=== PATIENT | male | born 1955 | race African-American/Black ===

== ENCOUNTER 2018-10-31 13:17 | Emergency (ER) | payer MEDICARE, OTHER ==
[~2018-10-31] VITALS: Ht 182.9 cm; Wt 119.5 kg
[2018-10-31] MEDS ORDERED: HYDR25TA PO (13:45)
[2018-10-31] MEDS ORDERED: SERT50TA12 PO (13:45)
[2018-10-31] MEDS ORDERED: BUPR75 PO (13:45)
[2018-10-31] MEDS ORDERED: VERA80 PO (13:45)
[2018-10-31] MEDS ORDERED: ASPI-556 PO (13:45)
[2018-10-31] MEDS ORDERED: OMEP10 PO (13:45)
[2018-10-31] MEDS ORDERED: ALBUTEROL SULFATE 2.5 MG/0.5 ML NEB SOLUTION NEB ONE ×2 (14:45→15:40)
[2018-10-31] MEDS ORDERED: IPRATROPIUM BROMIDE 0.5 MG/2.5 ML NEB SOLUTION NEB ONE (14:45)
[2018-10-31 15:25] LABS: BASOPHILS % (AUTO) 0.6 % (0.0-2.0); EOSINOPHILS % (AUTO) 1.5 % (1.0-6.0); HEMATOCRIT 39.7 % (41-53); HEMOGLOBIN 13.3 g/dL (13.5-17.5); LYMPHOCYTES # (AUTO) 1.1 K/uL (1.0-4.8); LYMPHOCYTES % (AUTO) 20.3 % (22.0-44.0); MEAN CORPUSCULAR HEMOGLOBIN 30.2 pg (26.0-34.0); MEAN CORPUSCULAR HGB CONC 33.4 G/dL (31.0-37.0); MEAN CORPUSCULAR VOLUME 91 fL (80-100); MONOCYTES # (AUTO) 1.2 K/uL (0.1-1.0); MONOCYTES % (AUTO) 22.7 % (2.0-9.0); NEUTROPHILS # (AUTO) 2.9 K/uL (1.8-7.7); NEUTROPHILS % (AUTO) 54.9 % (40.0-70.0); PLATELET COUNT (AUTO) 200 K/uL (150-450); RED BLOOD CELL COUNT(AUTO) 4.39 MIL/uL (4.50-5.90); RED CELL DISTRIBUTION WIDTH 13.2 % (11.5-14.5)
[2018-10-31 15:40] LABS: ANION GAP 9 mmol/L (8-16); CALCIUM, TOTAL 8.9 mg/dL (8.8-10.5); CARBON DIOXIDE 29 mmol/L (22-29); CHLORIDE 103 mmol/L (98-107); CREATININE 1.14 mg/dL (0.60-1.30); GLOMERULAR FILTR. RATE CALC > 60 mL/min (>60); GLUCOSE,RANDOM 101 mg/dL (70-110); POTASSIUM 3.4 mmol/L (3.5-5.1); SODIUM SERUM 141 mmol/L (136-145); UREA NITROGEN, BLOOD 18 mg/dL (7-18)
[2018-10-31 15:47] LABS: B-TYPE NATRIURETIC PEPTIDE 14 pg/mL (0-100)
[2018-10-31 16:05] LABS: ALANINE AMINOTRANSFERASE 22 U/L (12-78); ALBUMIN 3.2 g/dL (3.4-5.0); ALKALINE PHOSPHATASE 78 U/L (46-116); ASPARTATE AMINOTRANSFERASE 29 U/L (15-37); BILIRUBIN,TOTAL 0.7 mg/dL (0.1-1.0); CREATINE KINASE, TOTAL ONLY 215 U/L (39-308); TOTAL PROTEIN, SERUM 7.4 g/dL (6.4-8.2)
[2018-10-31] MEDS ORDERED: DEXAMETHASONE SOD PHOS 4 MG/ML 5 ML VIAL IVP ONE (16:30)
[2018-10-31] MEDS ORDERED: LEVOFLOXACIN 500 MG/D5% WATER 100 ML IV ONE (16:30)
[2018-10-31 16:50] LABS: PLATELET MORPHOLOGY COMMENT LARGE PLTS PRESENT
[2018-10-31 18:15] VITALS: BP 159/73
[2018-11-01] MEDS ORDERED: INHALER IH (12:12)
[2018-11-01] MEDS ORDERED: ANTIBIOTIC PO (12:12)
== END 2018-10-31 18:42 | disposition home or self-care (01) ==
LOC: EMS 13:36
DX: J40 Bronchitis, not specified as acute or chronic (principal); K21.9 Gastro-esophageal reflux disease without esophagitis; I10 Essential (primary) hypertension; Z79.82 Long term (current) use of aspirin
CPT/HCPCS: 36415; 71045; 80053; 82550; 83880; 84484; 85025; 93005; 94640; 96365; 96375; 99285; J1100; J1956

== ENCOUNTER 2018-11-01 12:10 | Inpatient (IN) | payer MEDICARE, OTHER ==
[~2018-11-01] VITALS: Ht 182.9 cm; Wt 119.0 kg
[~2018-11-01 12:10] MED LIST: ASPI-556 PO; BUPR75 PO; HYDR25TA PO; OMEP10 PO; SERT50TA12 PO; VERA80 PO
[2018-11-01] MEDS ORDERED: ANTIBIOTIC PO (12:12)
[2018-11-01] MEDS ORDERED: INHALER IH (12:12)
[2018-11-01] MEDS ORDERED: ALBUTEROL SULFATE 5 MG/ML 20 ML NEB SOLN [BULK] NEB ONE (12:45)
[2018-11-01] MEDS ORDERED: IBUPROFEN 600 MG TABLET PO ONE (12:45)
[2018-11-01] MEDS ORDERED: IPRATROPIUM BROMIDE 0.5 MG/2.5 ML NEB SOLUTION NEB ONE (12:45)
[2018-11-01] MEDS ORDERED: PredniSONE 20 MG TABLET PO ONE (12:45)
[2018-11-01 12:49] LABS: BASOPHILS % (AUTO) 0.2 % (0.0-2.0); EOSINOPHILS % (AUTO) 0 % (1.0-6.0); HEMATOCRIT 38.1 % (41-53); HEMOGLOBIN 12.8 g/dL (13.5-17.5); LYMPHOCYTES # (AUTO) 0.9 K/uL (1.0-4.8); LYMPHOCYTES % (AUTO) 15.5 % (22.0-44.0); MEAN CORPUSCULAR HEMOGLOBIN 30.3 pg (26.0-34.0); MEAN CORPUSCULAR HGB CONC 33.6 G/dL (31.0-37.0); MEAN CORPUSCULAR VOLUME 90 fL (80-100); MONOCYTES # (AUTO) 0.8 K/uL (0.1-1.0); MONOCYTES % (AUTO) 13.5 % (2.0-9.0); NEUTROPHILS % (AUTO) 70.8 % (40.0-70.0); PLATELET COUNT (AUTO) 191 K/uL (150-450); RED BLOOD CELL COUNT(AUTO) 4.22 MIL/uL (4.50-5.90); RED CELL DISTRIBUTION WIDTH 13.3 % (11.5-14.5)
[2018-11-01 12:59] LABS: ANION GAP 13 mmol/L (8-16); CALCIUM, TOTAL 8.8 mg/dL (8.8-10.5); CARBON DIOXIDE 25 mmol/L (22-29); CHLORIDE 102 mmol/L (98-107); CREATININE 1.37 mg/dL (0.60-1.30); GLOMERULAR FILTR. RATE CALC > 60 mL/min (>60); GLUCOSE,RANDOM 173 mg/dL (70-110); POTASSIUM 3.1 mmol/L (3.5-5.1); SODIUM SERUM 140 mmol/L (136-145); UREA NITROGEN, BLOOD 16 mg/dL (7-18)
[2018-11-01] MEDS ORDERED: 0.9% SODIUM CHLORIDE 15 ML NEB SOLUTION NEB ONE (13:02)
[2018-11-01] MEDS ORDERED: SODIUM CHLORIDE 0.9% 100 ML ONE (13:53)
[2018-11-01] MEDS ORDERED: IOVERSOL 350 MG/ML 100 ML VIAL ONE (13:53)
[2018-11-01 14:08] LABS: INFLUENZA TYPE A NEGATIVE FOR TYPE A (NEGATIVE); INFLUENZA TYPE B NEGATIVE FOR TYPE B (NEGATIVE)
[2018-11-01] MEDS ORDERED: AZITHROMYCIN 500 MG/NS 250 ML IV ONE (15:45)
[2018-11-01] MEDS ORDERED: CefTRIAXone 1 GM/DEXTROSE 50 ML IV ONE (15:45)
[2018-11-01] MEDS ORDERED: ACETAMINOPHEN 325 MG TABLET PO PRN ×2 (16:00→20:30)
[2018-11-01] MEDS ORDERED: ONDANSETRON HCL 4 MG/2 ML VIAL IVP PRN (16:00)
[2018-11-01] MEDS ORDERED: IPRATROPIUM BROMIDE 0.5 MG/2.5 ML NEB SOLUTION NEB PRN (16:00)
[2018-11-01] MEDS ORDERED: ALBUTEROL SULFATE 2.5 MG/0.5 ML NEB SOLUTION NEB PRN (16:00)
[2018-11-01 17:07] VITALS: BP 151/70
[2018-11-01] MEDS ORDERED: POTASSIUM CHL 10 MEQ/WATER 50 ML IV PRN ×2 (17:30→20:30)
[2018-11-01] MEDS ORDERED: POTASSIUM CHLORIDE 20 MEQ ER TABLET PO PRN ×2 (17:30→20:30)
[2018-11-01] MEDS ORDERED: ZOLPIDEM TARTRATE 5 MG TABLET PO PRN (17:30)
[2018-11-01] MEDS ORDERED: SODIUM CHLORIDE 0.9% 500 ML IV ONE (17:31)
[2018-11-01 19:30] VITALS: BP 154/68
[2018-11-01] MEDS ORDERED: MAGNESIUM HYDROXIDE SUSPENSION 30 ML UDCUP PO PRN (20:30)
[2018-11-01] MEDS: ZOLPIDEM TARTRATE 5 MG TABLET PO PRN (21:10)
[2018-11-01] MEDS: DOCUSATE SODIUM 100 MG CAPSULE PO SCH (21:13)
[2018-11-01 23:32] VITALS: BP 146/69
[2018-11-01] MEDS: HEPARIN SODIUM,PORCINE 5,000 UNITS/ML VIAL SQ SCH (23:41)
[2018-11-02 04:47] VITALS: BP 160/85
[2018-11-02] MEDS: IPRATROPIUM BROMIDE 0.5 MG/2.5 ML NEB SOLUTION NEB PRN ×3 (05:22→19:37)
[2018-11-02] MEDS: ALBUTEROL SULFATE 2.5 MG/0.5 ML NEB SOLUTION NEB PRN ×3 (05:22→19:37)
[2018-11-02 06:20] LABS: ANION GAP 9 mmol/L (8-16); CALCIUM, TOTAL 9.1 mg/dL (8.8-10.5); CARBON DIOXIDE 27 mmol/L (22-29); CHLORIDE 104 mmol/L (98-107); CREATININE 1.21 mg/dL (0.60-1.30); GLOMERULAR FILTR. RATE CALC > 60 mL/min (>60); GLUCOSE,RANDOM 314 mg/dL (70-110); POTASSIUM 4.1 mmol/L (3.5-5.1); SODIUM SERUM 140 mmol/L (136-145); UREA NITROGEN, BLOOD 15 mg/dL (7-18)
[2018-11-02] MEDS: NICOTINE 14 MG/24 HOUR PATCH TD SCH (08:06)
[2018-11-02] MEDS: DOCUSATE SODIUM 100 MG CAPSULE PO SCH ×2 (08:06→20:00)
[2018-11-02] MEDS: HEPARIN SODIUM,PORCINE 5,000 UNITS/ML VIAL SQ SCH ×3 (08:06→23:54)
[2018-11-02 08:28] VITALS: BP 151/59
[2018-11-02] MEDS: BENZOCAINE/MENTHOL LOZENGE PO PRN (09:27)
[2018-11-02 11:39] VITALS: BP 162/85
[2018-11-02] MEDS: AZITHROMYCIN 500 MG/NS 250 ML IV SCH (15:29)
[2018-11-02] MEDS: CefTRIAXone 1 GM/DEXTROSE 50 ML IV SCH (15:29)
[2018-11-02 16:00] VITALS: BP 162/79
[2018-11-02 19:45] VITALS: BP 146/77
[2018-11-02] MEDS: ZOLPIDEM TARTRATE 5 MG TABLET PO PRN (21:04)
[2018-11-02 22:14] LABS: BASOPHILS % (AUTO) 0.4 % (0.0-2.0); EOSINOPHILS % (AUTO) 0.5 % (1.0-6.0); HEMATOCRIT 35.5 % (41-53); HEMOGLOBIN 11.8 g/dL (13.5-17.5); LYMPHOCYTES # (AUTO) 1.8 K/uL (1.0-4.8); LYMPHOCYTES % (AUTO) 37.3 % (22.0-44.0); MEAN CORPUSCULAR HEMOGLOBIN 29.7 pg (26.0-34.0); MEAN CORPUSCULAR HGB CONC 33.3 G/dL (31.0-37.0); MEAN CORPUSCULAR VOLUME 89 fL (80-100); MONOCYTES # (AUTO) 0.8 K/uL (0.1-1.0); MONOCYTES % (AUTO) 15.4 % (2.0-9.0); NEUTROPHILS # (AUTO) 2.3 K/uL (1.8-7.7); NEUTROPHILS % (AUTO) 46.4 % (40.0-70.0); PLATELET COUNT (AUTO) 215 K/uL (150-450); RED BLOOD CELL COUNT(AUTO) 3.97 MIL/uL (4.50-5.90); RED CELL DISTRIBUTION WIDTH 13.6 % (11.5-14.5)
[2018-11-02 22:31] LABS: ANION GAP 7 mmol/L (8-16); CALCIUM, TOTAL 8.7 mg/dL (8.8-10.5); CARBON DIOXIDE 30 mmol/L (22-29); CHLORIDE 104 mmol/L (98-107); CREATININE 0.94 mg/dL (0.60-1.30); GLOMERULAR FILTR. RATE CALC > 60 mL/min (>60); GLUCOSE,RANDOM 199 mg/dL (70-110); POTASSIUM 3.2 mmol/L (3.5-5.1); SODIUM SERUM 141 mmol/L (136-145); UREA NITROGEN, BLOOD 15 mg/dL (7-18)
[2018-11-02 22:37] LABS: ALANINE AMINOTRANSFERASE 22 U/L (12-78); ALBUMIN 2.8 g/dL (3.4-5.0); ALKALINE PHOSPHATASE 69 U/L (46-116); ASPARTATE AMINOTRANSFERASE 27 U/L (15-37); BILIRUBIN,TOTAL 0.3 mg/dL (0.1-1.0); TOTAL PROTEIN, SERUM 7.2 g/dL (6.4-8.2)
[2018-11-02 23:28] VITALS: BP 150/80
[2018-11-03 04:54] VITALS: BP 159/91
[2018-11-03 08:14] VITALS: BP 135/91
[2018-11-03 08:14] LABS: AMPHET/METH SCREEN,URINE NEGATIVE (NEGATIVE); BARBITURATE SCREEN, URINE NEGATIVE (NEGATIVE); BENZODIAZEPINES SCREEN,URINE POSITIVE (NEGATIVE); CANNABINOID SCREEN,URINE NEGATIVE (NEGATIVE); COCAINE SCREEN,URINE POSITIVE (NEGATIVE); METHADONE SCREEN, URINE NEGATIVE (NEGATIVE); OPIATE SCREEN,URINE NEGATIVE (NEGATIVE)
[2018-11-03] MEDS: NICOTINE 14 MG/24 HOUR PATCH TD SCH (08:20)
[2018-11-03] MEDS: DOCUSATE SODIUM 100 MG CAPSULE PO SCH ×2 (08:21→20:10)
[2018-11-03 08:23] LABS: PHENCYCLIDINE SCREEN,URINE NEGATIVE (NEGATIVE)
[2018-11-03] MEDS: HEPARIN SODIUM,PORCINE 5,000 UNITS/ML VIAL SQ SCH ×3 (08:23→23:20)
[2018-11-03] MEDS: ALBUTEROL SULFATE 2.5 MG/0.5 ML NEB SOLUTION NEB PRN (09:55)
[2018-11-03] MEDS: IPRATROPIUM BROMIDE 0.5 MG/2.5 ML NEB SOLUTION NEB PRN (09:55)
[2018-11-03 11:29] VITALS: BP 147/92
[2018-11-03] MEDS: ASPIRIN 81 MG EC TABLET PO SCH (13:59)
[2018-11-03] MEDS: MethylPREDNISolone SOD SUCC 125 MG/2 ML VIAL IVP SCH ×3 (13:59→23:19)
[2018-11-03] MEDS: SERTRALINE HCL 50 MG TABLET PO SCH (14:00)
[2018-11-03] MEDS: VERAPAMIL HCL 80 MG TABLET PO SCH ×2 (14:01→20:10)
[2018-11-03] MEDS: OMEPRAZOLE 10 MG CAPSULE PO SCH ×2 (14:01→20:09)
[2018-11-03] MEDS: BuPROPion HCL 75 MG TABLET PO SCH ×2 (14:01→20:10)
[2018-11-03] MEDS: HYDROCHLOROTHIAZIDE 25 MG TABLET PO SCH ×2 (14:01→20:10)
[2018-11-03] MEDS: CefTRIAXone 1 GM/DEXTROSE 50 ML IV SCH (14:02)
[2018-11-03 15:23] VITALS: BP 144/81
[2018-11-03] MEDS: AZITHROMYCIN 500 MG/NS 250 ML IV SCH (15:32)
[2018-11-03] MEDS ORDERED: MethylPREDNISolone SOD SUCC 125 MG/2 ML VIAL IVP SCH (18:00)
[2018-11-03 19:39] VITALS: BP 153/85
[2018-11-03] MEDS: ZOLPIDEM TARTRATE 5 MG TABLET PO PRN (20:11)
[2018-11-03 23:44] VITALS: BP 155/69
[2018-11-04] MEDS: BENZOCAINE/MENTHOL LOZENGE PO PRN ×2 (02:13→09:18)
[2018-11-04 05:32] VITALS: BP 163/96
[2018-11-04] MEDS: MethylPREDNISolone SOD SUCC 125 MG/2 ML VIAL IVP SCH ×4 (05:32→23:14)
[2018-11-04 08:17] VITALS: BP 142/69
[2018-11-04] MEDS: DOCUSATE SODIUM 100 MG CAPSULE PO SCH ×3 (09:00→20:02)
[2018-11-04] MEDS: VERAPAMIL HCL 80 MG TABLET PO SCH ×2 (09:11→19:51)
[2018-11-04] MEDS: HEPARIN SODIUM,PORCINE 5,000 UNITS/ML VIAL SQ SCH ×3 (09:11→23:14)
[2018-11-04] MEDS: HYDROCHLOROTHIAZIDE 25 MG TABLET PO SCH ×2 (09:11→19:50)
[2018-11-04] MEDS: SERTRALINE HCL 50 MG TABLET PO SCH (09:12)
[2018-11-04] MEDS: NICOTINE 14 MG/24 HOUR PATCH TD SCH (09:12)
[2018-11-04] MEDS: OMEPRAZOLE 10 MG CAPSULE PO SCH ×2 (09:12→20:02)
[2018-11-04] MEDS: BuPROPion HCL 75 MG TABLET PO SCH ×3 (09:12→19:50)
[2018-11-04] MEDS: ASPIRIN 81 MG EC TABLET PO SCH (09:14)
[2018-11-04] MEDS: ALBUTEROL SULFATE 2.5 MG/0.5 ML NEB SOLUTION NEB PRN (09:30)
[2018-11-04] MEDS: IPRATROPIUM BROMIDE 0.5 MG/2.5 ML NEB SOLUTION NEB PRN (09:30)
[2018-11-04] MEDS: OxyCODONE HCL/ACETAMINOPHEN 5-325 MG TABLET PO PRN ×2 (11:29→17:45)
[2018-11-04 12:04] VITALS: BP 147/90
[2018-11-04] MEDS: AZITHROMYCIN 500 MG/NS 250 ML IV SCH (14:23)
[2018-11-04] MEDS: CefTRIAXone 1 GM/DEXTROSE 50 ML IV SCH (14:24)
[2018-11-04 16:15] VITALS: BP 134/80
[2018-11-04 20:04] VITALS: BP 137/76
[2018-11-04 23:11] VITALS: BP 142/73
[2018-11-04] MEDS: ZOLPIDEM TARTRATE 5 MG TABLET PO PRN (23:13)
[2018-11-05] MEDS: MethylPREDNISolone SOD SUCC 125 MG/2 ML VIAL IVP SCH ×4 (05:42→23:13)
[2018-11-05] MEDS ORDERED: OxyCODONE HCL/ACETAMINOPHEN 5-325 MG TABLET ONE (06:51)
[2018-11-05] MEDS: OxyCODONE HCL/ACETAMINOPHEN 5-325 MG TABLET PO PRN ×2 (06:52→17:23)
[2018-11-05 07:20] VITALS: BP 156/82
[2018-11-05] MEDS: OMEPRAZOLE 10 MG CAPSULE PO SCH ×2 (08:50→20:15)
[2018-11-05] MEDS: ASPIRIN 81 MG EC TABLET PO SCH (08:50)
[2018-11-05] MEDS: BuPROPion HCL 75 MG TABLET PO SCH ×3 (08:50→20:15)
[2018-11-05] MEDS: HYDROCHLOROTHIAZIDE 25 MG TABLET PO SCH ×2 (08:50→20:15)
[2018-11-05] MEDS: NICOTINE 14 MG/24 HOUR PATCH TD SCH (08:50)
[2018-11-05] MEDS: DOCUSATE SODIUM 100 MG CAPSULE PO SCH ×2 (08:50→20:15)
[2018-11-05] MEDS: SERTRALINE HCL 50 MG TABLET PO SCH (08:51)
[2018-11-05] MEDS: VERAPAMIL HCL 80 MG TABLET PO SCH ×2 (08:51→20:14)
[2018-11-05] MEDS: HEPARIN SODIUM,PORCINE 5,000 UNITS/ML VIAL SQ SCH ×3 (08:51→23:13)
[2018-11-05 09:53] LABS: BASOPHILS % (AUTO) 0.1 % (0.0-2.0); EOSINOPHILS % (AUTO) 0 % (1.0-6.0); HEMATOCRIT 37.4 % (41-53); HEMOGLOBIN 12.4 g/dL (13.5-17.5); LYMPHOCYTES # (AUTO) 1.1 K/uL (1.0-4.8); LYMPHOCYTES % (AUTO) 12.5 % (22.0-44.0); MEAN CORPUSCULAR HEMOGLOBIN 29.4 pg (26.0-34.0); MEAN CORPUSCULAR HGB CONC 33.2 G/dL (31.0-37.0); MEAN CORPUSCULAR VOLUME 89 fL (80-100); MONOCYTES # (AUTO) 0.3 K/uL (0.1-1.0); MONOCYTES % (AUTO) 3.3 % (2.0-9.0); NEUTROPHILS # (AUTO) 7.2 K/uL (1.8-7.7); NEUTROPHILS % (AUTO) 84.1 % (40.0-70.0); PLATELET COUNT (AUTO) 240 K/uL (150-450); RED BLOOD CELL COUNT(AUTO) 4.22 MIL/uL (4.50-5.90); RED CELL DISTRIBUTION WIDTH 13.1 % (11.5-14.5)
[2018-11-05 10:01] LABS: ANION GAP 9 mmol/L (8-16); CALCIUM, TOTAL 9.2 mg/dL (8.8-10.5); CARBON DIOXIDE 29 mmol/L (22-29); CHLORIDE 95 mmol/L (98-107); CREATININE 1.22 mg/dL (0.60-1.30); GLOMERULAR FILTR. RATE CALC > 60 mL/min (>60); GLUCOSE,RANDOM 397 mg/dL (70-110); POTASSIUM 4.2 mmol/L (3.5-5.1); SODIUM SERUM 133 mmol/L (136-145); UREA NITROGEN, BLOOD 24 mg/dL (7-18)
[2018-11-05 10:07] LABS: ALANINE AMINOTRANSFERASE 31 U/L (12-78); ALBUMIN 3.3 g/dL (3.4-5.0); ALKALINE PHOSPHATASE 90 U/L (46-116); ASPARTATE AMINOTRANSFERASE 25 U/L (15-37); BILIRUBIN,TOTAL 0.4 mg/dL (0.1-1.0); TOTAL PROTEIN, SERUM 7.5 g/dL (6.4-8.2)
[2018-11-05 11:26] VITALS: BP 166/79
[2018-11-05] MEDS: CefTRIAXone 1 GM/DEXTROSE 50 ML IV SCH (14:00)
[2018-11-05] MEDS: AZITHROMYCIN 500 MG/NS 250 ML IV SCH (15:20)
[2018-11-05 15:25] VITALS: BP 135/64
[2018-11-05 20:00] VITALS: BP 150/72
[2018-11-05] MEDS: ZOLPIDEM TARTRATE 5 MG TABLET PO PRN (20:15)
[2018-11-06] VITALS (7 sets, daily range): BP systolic 142–157; BP diastolic 64–88
[2018-11-06] MEDS: MethylPREDNISolone SOD SUCC 125 MG/2 ML VIAL IVP SCH ×4 (06:35→23:19)
[2018-11-06] MEDS: OxyCODONE HCL/ACETAMINOPHEN 5-325 MG TABLET PO PRN ×2 (06:43→11:37)
[2018-11-06 07:17] LABS: BASOPHILS % (AUTO) 0.1 % (0.0-2.0); EOSINOPHILS % (AUTO) 0 % (1.0-6.0); HEMATOCRIT 39.1 % (41-53); HEMOGLOBIN 12.9 g/dL (13.5-17.5); LYMPHOCYTES # (AUTO) 1.2 K/uL (1.0-4.8); LYMPHOCYTES % (AUTO) 12.1 % (22.0-44.0); MEAN CORPUSCULAR HEMOGLOBIN 29.5 pg (26.0-34.0); MEAN CORPUSCULAR HGB CONC 33.1 G/dL (31.0-37.0); MEAN CORPUSCULAR VOLUME 89 fL (80-100); MONOCYTES # (AUTO) 0.4 K/uL (0.1-1.0); MONOCYTES % (AUTO) 4.5 % (2.0-9.0); NEUTROPHILS % (AUTO) 83.3 % (40.0-70.0); PLATELET COUNT (AUTO) 263 K/uL (150-450); RED BLOOD CELL COUNT(AUTO) 4.38 MIL/uL (4.50-5.90); RED CELL DISTRIBUTION WIDTH 13.2 % (11.5-14.5)
[2018-11-06 07:52] LABS: ALANINE AMINOTRANSFERASE 30 U/L (12-78); ALBUMIN 3.2 g/dL (3.4-5.0); ALKALINE PHOSPHATASE 92 U/L (46-116); ANION GAP 7 mmol/L (8-16); ASPARTATE AMINOTRANSFERASE 19 U/L (15-37); BILIRUBIN,TOTAL 0.5 mg/dL (0.1-1.0); CALCIUM, TOTAL 9.4 mg/dL (8.8-10.5); CARBON DIOXIDE 32 mmol/L (22-29); CHLORIDE 94 mmol/L (98-107); CREATININE 1.18 mg/dL (0.60-1.30); GLOMERULAR FILTR. RATE CALC > 60 mL/min (>60); POTASSIUM 3.7 mmol/L (3.5-5.1); SODIUM SERUM 133 mmol/L (136-145); TOTAL PROTEIN, SERUM 7.4 g/dL (6.4-8.2); UREA NITROGEN, BLOOD 22 mg/dL (7-18)
[2018-11-06 07:58] LABS: GLUCOSE,RANDOM 438 mg/dL (70-110)
[2018-11-06] MEDS: ASPIRIN 81 MG EC TABLET PO SCH (08:11)
[2018-11-06] MEDS: DOCUSATE SODIUM 100 MG CAPSULE PO SCH ×2 (08:11→20:16)
[2018-11-06] MEDS: HEPARIN SODIUM,PORCINE 5,000 UNITS/ML VIAL SQ SCH ×3 (08:11→23:20)
[2018-11-06] MEDS: SERTRALINE HCL 50 MG TABLET PO SCH (08:12)
[2018-11-06] MEDS: BuPROPion HCL 75 MG TABLET PO SCH ×3 (08:12→20:16)
[2018-11-06] MEDS: OMEPRAZOLE 10 MG CAPSULE PO SCH ×2 (08:12→20:16)
[2018-11-06] MEDS: HYDROCHLOROTHIAZIDE 25 MG TABLET PO SCH ×2 (08:12→20:16)
[2018-11-06] MEDS: VERAPAMIL HCL 80 MG TABLET PO SCH (08:13)
[2018-11-06] MEDS: NICOTINE 14 MG/24 HOUR PATCH TD SCH (08:16)
[2018-11-06 08:40] LABS: GLUCOMETER DEV NAME(LOC) 5N.2; GLUCOSE,POINT OF CARE 371 MG/DL (70-110)
[2018-11-06] MEDS ORDERED: DEXTROSE 50%-WATER 25 GM/50 ML SYRINGE IVP PRN (09:30)
[2018-11-06] MEDS: INSULIN LISPRO 100 UNITS/ML SQ PRN ×2 (11:52→21:05)
[2018-11-06] MEDS ORDERED: INSULIN LISPRO 100 UNITS/ML SQ ONE (12:45)
[2018-11-06] MEDS ORDERED: SODIUM CHLORIDE 0.9% 500 ML IV ONE (14:38)
[2018-11-06] MEDS: CefTRIAXone 1 GM/DEXTROSE 50 ML IV SCH (14:45)
[2018-11-06] MEDS: AZITHROMYCIN 500 MG/NS 250 ML IV SCH (15:25)
[2018-11-06 17:54] LABS: GLUCOMETER DEV NAME(LOC) 6N.1; GLUCOSE,POINT OF CARE 106 MG/DL (70-110)
[2018-11-06] MEDS: ZOLPIDEM TARTRATE 5 MG TABLET PO PRN (20:16)
[2018-11-06 23:07] LABS: GLUCOMETER DEV NAME(LOC) 6N.2; GLUCOSE,POINT OF CARE 284 MG/DL (70-110)
[2018-11-07] MEDS: MethylPREDNISolone SOD SUCC 125 MG/2 ML VIAL IVP SCH ×2 (05:27→12:56)
[2018-11-07] MEDS: INSULIN LISPRO 100 UNITS/ML SQ PRN ×2 (05:28→11:19)
[2018-11-07 05:58] LABS: EOSINOPHILS % (AUTO) 0 % (1.0-6.0); HEMATOCRIT 39.5 % (41-53); HEMOGLOBIN 12.9 g/dL (13.5-17.5); LYMPHOCYTES # (AUTO) 1.6 K/uL (1.0-4.8); MEAN CORPUSCULAR HEMOGLOBIN 29.2 pg (26.0-34.0); MEAN CORPUSCULAR HGB CONC 32.7 G/dL (31.0-37.0); MEAN CORPUSCULAR VOLUME 89 fL (80-100); MONOCYTES # (AUTO) 0.8 K/uL (0.1-1.0); MONOCYTES % (AUTO) 7.3 % (2.0-9.0); NEUTROPHILS # (AUTO) 8.8 K/uL (1.8-7.7); NEUTROPHILS % (AUTO) 78.7 % (40.0-70.0); PLATELET COUNT (AUTO) 272 K/uL (150-450); RED BLOOD CELL COUNT(AUTO) 4.42 MIL/uL (4.50-5.90); RED CELL DISTRIBUTION WIDTH 13.1 % (11.5-14.5)
[2018-11-07 06:32] LABS: ALANINE AMINOTRANSFERASE 31 U/L (12-78); ALKALINE PHOSPHATASE 74 U/L (46-116); ANION GAP 6 mmol/L (8-16); ASPARTATE AMINOTRANSFERASE 20 U/L (15-37); BILIRUBIN,TOTAL 0.5 mg/dL (0.1-1.0); CARBON DIOXIDE 32 mmol/L (22-29); CHLORIDE 96 mmol/L (98-107); CREATININE 0.99 mg/dL (0.60-1.30); GLOMERULAR FILTR. RATE CALC > 60 mL/min (>60); GLUCOSE,RANDOM 258 mg/dL (70-110); POTASSIUM 3.6 mmol/L (3.5-5.1); SODIUM SERUM 134 mmol/L (136-145); TOTAL PROTEIN, SERUM 6.8 g/dL (6.4-8.2); UREA NITROGEN, BLOOD 27 mg/dL (7-18)
[2018-11-07 06:59] LABS: GLUCOMETER DEV NAME(LOC) 6N.2; GLUCOSE,POINT OF CARE 258 MG/DL (70-110)
[2018-11-07 08:14] VITALS: BP 161/87
[2018-11-07] MEDS: HEPARIN SODIUM,PORCINE 5,000 UNITS/ML VIAL SQ SCH (08:18)
[2018-11-07] MEDS: OMEPRAZOLE 10 MG CAPSULE PO SCH (08:18)
[2018-11-07] MEDS: BuPROPion HCL 75 MG TABLET PO SCH ×2 (08:18→15:18)
[2018-11-07] MEDS: NICOTINE 14 MG/24 HOUR PATCH TD SCH (08:18)
[2018-11-07] MEDS: HYDROCHLOROTHIAZIDE 25 MG TABLET PO SCH (08:19)
[2018-11-07] MEDS: ASPIRIN 81 MG EC TABLET PO SCH (08:19)
[2018-11-07] MEDS: SERTRALINE HCL 50 MG TABLET PO SCH (08:19)
[2018-11-07] MEDS: DOCUSATE SODIUM 100 MG CAPSULE PO SCH (08:20)
[2018-11-07] MEDS: OxyCODONE HCL/ACETAMINOPHEN 5-325 MG TABLET PO PRN (08:29)
[2018-11-07] MEDS ORDERED: VERAPAMIL HCL 240 MG ER TABLET PO SCH (09:00)
[2018-11-07 11:34] VITALS: BP 151/73
[2018-11-07 12:35] LABS: GLUCOMETER DEV NAME(LOC) 6N.2; GLUCOSE,POINT OF CARE 263 MG/DL (70-110)
[2018-11-07] MEDS ORDERED: PredniSONE 20 MG TABLET PO ONE (14:15)
[2018-11-07] MEDS: ALBUTEROL SULFATE 2.5 MG/0.5 ML NEB SOLUTION NEB PRN (14:45)
[2018-11-07] MEDS: IPRATROPIUM BROMIDE 0.5 MG/2.5 ML NEB SOLUTION NEB PRN (14:45)
[2018-11-07] MEDS: CefTRIAXone 1 GM/DEXTROSE 50 ML IV SCH (15:18)
[2018-11-07] MEDS ORDERED: LEVO250 PO (15:25)
[2018-11-07] MEDS ORDERED: ADV100 IH (15:26)
[2018-11-07] MEDS ORDERED: IPRA4AER IH (15:26)
[2018-11-07] MEDS ORDERED: PRED5L PO (15:27)
[2018-11-07 15:57] VITALS: BP 140/83
[2018-11-07 21:55] LABS: GLUCOMETER DEV NAME(LOC) 5N.2; GLUCOSE,POINT OF CARE 408 MG/DL (70-110)
[2018-11-07 21:55] LABS: GLUCOMETER DEV NAME(LOC) 5N.2; GLUCOSE,POINT OF CARE 441 MG/DL (70-110)
[2018-11-07 21:55] LABS: GLUCOMETER DEV NAME(LOC) 5N.2; GLUCOSE,POINT OF CARE 189 MG/DL (70-110)
== END 2018-11-07 16:10 | disposition home or self-care (01) | DRG 190 ==
LOC: EMS 12:11 → 4E 15:58 → 5N 11-05 05:48 → 6N 11-06 15:57
PROVIDERS: ADMIT Internal Medicine; ATTEND Internal Medicine
DX: J44.1 Chronic obstructive pulmonary disease with (acute) exacerbation (principal); J18.8 Other pneumonia, unspecified organism; J44.0 Chronic obstructive pulmonary disease with (acute) lower respiratory infection; F19.10 Other psychoactive substance abuse, uncomplicated; E66.9 Obesity, unspecified; F10.20 Alcohol dependence, uncomplicated; F17.200 Nicotine dependence, unspecified, uncomplicated; Z71.6 Tobacco abuse counseling; I10 Essential (primary) hypertension; K21.9 Gastro-esophageal reflux disease without esophagitis; Z68.35 Body mass index [BMI] 35.0-35.9, adult
CPT/HCPCS: 71275; 80307; 83036; 84132; 85379; 87804; 93005; 94640; 94644; 96365; 96375; G0378; J0456; J0696; J1100; J1644; J1815; J1956; J2930; J7040; J7050

== ENCOUNTER 2024-04-01 20:18 | Emergency (ER) | payer MEDICARE, OTHER ==
[~2024-04-01] VITALS: Ht 182.9 cm; Wt 111.0 kg
[~2024-04-01 20:18] MED LIST changes: +AMLO-258 PO; +ASPI-1444 PO; -ASPI-556 PO; +BUPR-344 PO; -BUPR75 PO; +CARV25TA32 PO; +FLUT1DIS4 IH; +FOLI-130 PO; +FURO-152 PO; +GABA600T10 PO; -HYDR25TA PO; +HYDR25TA2 PO; +LISI40TA9 PO; +NALT50TA33 PO; -OMEP10 PO; +OMEP20CA12 PO; +SERT-158 PO; -SERT50TA12 PO; +SILD100T71 PO; +SPIR-37 PO; -VERA80 PO
[2024-04-01 20:20] VITALS: TEMP 98
[2024-04-02] VITALS: BP 165/82; PULSE 82; RESP 18
== END 2024-04-02 02:02 | disposition home or self-care (01) ==
LOC: EMS 20:18
DX: T65.891A Toxic effect of other specified substances, accidental (unintentional), initial encounter (principal); I11.0 Hypertensive heart disease with heart failure; I50.9 Heart failure, unspecified; K21.9 Gastro-esophageal reflux disease without esophagitis; F14.90 Cocaine use, unspecified, uncomplicated; Z87.891 Personal history of nicotine dependence; X58.XXXA Exposure to other specified factors, initial encounter
CPT/HCPCS: 99281; Z7502